=== PATIENT | male | born 1990 | race American Indian/Alaskan Native ===

== ENCOUNTER 2017-09-05 13:54 | Emergency (ER) | payer OTHER ==
[2017-09-05 14:01] VITALS: BMI 26.9
[2017-09-05] MEDS ORDERED: Naproxen 550 mg Tab PO STA (14:24)
[2017-09-05] MEDS ORDERED: Naproxen 550 mg Tab PO ONE (14:28)
--- NOTE | 2017-09-05 14:51 | RAD ---
HISTORY: upper back pain COMPARISON: No prior. TECHNIQUE: Chest PA and lateral FINDINGS: LUNGS: No active pulmonary disease. . Mild biapical pleural thickening. PLEURA: No significant pleural effusion identified. No pneumothorax apparent. CARDIOVASCULAR: Normal. OSSEOUS STRUCTURES: No significant abnormalities. VISUALIZED UPPER ABDOMEN: Normal. OTHER FINDINGS: None. IMPRESSION: No acute infiltrates.
--- NOTE | 2017-09-05 14:53 | RAD ---
PROCEDURE: Cervical Spine Radiographs. HISTORY: Pain. COMPARISON: None. FINDINGS: BONES: No acute compression fractures no retropulsed fragments. Vertebral bodies exhibit relatively normal stature. Minimal retrolisthesis C3 over C4 and to a lesser degree C4 over C5 exacerbated in appearance by prominent osteophytes arising from the posterior inferior corners of the C3 and C4 segments. , DISC SPACES: Disc space heights are relatively maintained however there are small marginal anterolateral and posterior osteophyte formation seen at several levels former larger than latter. SOFT TISSUES: Normal. No prevertebral soft tissue swelling. OTHER FINDINGS: None. IMPRESSION: No acute fractures. Mild degenerative spondylosis.
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
[2017-09-05] MEDS ORDERED: Hydrocodone/Acetaminophen 5 mg /300 mg Tab PO STA (15:22)
[2017-09-05] MEDS ORDERED: Hydrocodone/Acetaminophen 5 mg /300 mg Tab PO ONE (15:27)
[2017-09-05 15:30] VITALS: BP 123/79; PULSE 53; RESP 18; TEMP 98.3
[2017-09-05 16:02] VITALS: O2SAT 100
== END 2017-09-05 16:00 | disposition home or self-care (01) ==
LOC: C.ER 13:54
DX: S13.4XXA Sprain of ligaments of cervical spine, initial encounter (principal); S33.5XXA Sprain of ligaments of lumbar spine, initial encounter; V89.2XXA Person injured in unspecified motor-vehicle accident, traffic, initial encounter